=== PATIENT | female | born 1980 | race Caucasian/White ===

== ENCOUNTER 2021-05-25 09:07 | Observation (INO) ==
[2021-05-25 04:03] LABS: Amphetamine Screen,Urine Negative ng/mL (Cutoff=1000); Barbiturate Screen,Urine Negative ng/mL (Cutoff=200); Benzodiazepines Screen,Urine Negative ng/mL (Cutoff=200); Cannabinoid Screen,Urine Negative ng/mL (Cutoff = 50); Cocaine Screen,Urine Negative ng/mL (Cutoff= 300); Opiate Screen,Urine Negative ng/mL (Cutoff=300); Phencyclidine Screen,Urine Negative ng/mL (Cutoff=25)
[2021-05-25 04:10] LABS: Basophils % 0.4 %; Eosinophils % 0.4 %; Hematocrit 36.1 % (35.3-44.9); Hemoglobin 12.1 g/dL (11.5-15.4); Immature Granulocytes % 0.4 % (0-4); Lymphocytes # 2.3 K/mcL (0.6-4.6); Lymphocytes % 27.4 %; Mean Corpuscular HGB Conc 33.5 g/dL (31.6-35.5); Mean Corpuscular Hemoglobin 28.2 pg (28.0-33.3); Mean Corpuscular Volume 84.1 fL (83.0-100.0); Mean Platelet Volume 11.3 fL (9.4-12.4); Monocytes # 0.4 K/mcL (0.0-1.3); Monocytes % 4.8 %; Neutrophils # 5.6 K/mcL (1.6-8.9); Platelet Count 250 K/mcL (140-400); Red Blood Count 4.29 M/mcL (3.82-4.97); Red Cell Distribution Width 13.4 % (11.5-14.5); Segmented Neutrophils % 66.6 %; White Blood Count 8.4 K/mcL (4.3-11.1)
[2021-05-25 04:30] LABS: Influenza A PCR Negative (Negative); Influenza B PCR Negative (Negative); Resp. Syncytial Virus PCR Negative (Negative)
[2021-05-25 04:32] LABS: SARS-CoV-2 by PCR (In House) Negative (Negative)
[2021-05-25 04:38] LABS: Creatinine,Urine 23 mg/dL; Protein/Creatinine Ratio,Urine 0.48 mg/mg (0.00-0.20)
[2021-05-25 04:54] LABS: Alanine Aminotransferase 16 Units/L (7-52); Aspartate Amino Transferase 17 Units/L (13-39); BUN/Creatinine Ratio 22 (6-26); Blood Urea Nitrogen 15 mg/dL (6-20); Lactate Dehydrogenase 135 Units/L (140-271); Uric Acid 5.8 mg/dL (2.3-7.6); eGFR For African Americans > 60 (> 60); eGFR For Non-African Americans > 60 (> 60)
[~2021-05-25 09:07] MED LIST: *HR* Nalbuphine 10 MG/ML AMPUL IV PRN; Azithromycin 500 MG in 0.9 % Sodium Chloride 250 ML IVPB PRN; Famotidine 20 MG/2 ML VIAL IVP PRN; Lidocaine 1% 20 ML MDV INFILT PRN; Metoclopramide 10 MG/2 ML VIAL IVP PRN; Naloxone 0.4 MG/ML INJ IVP PRN; Ondansetron 4 MG/2 ML VIAL IVP PRN; Oxytocin 20 units/ LR 1000 mL 20 UNIT/1,000 ML BAG IVC ONE; Ringers Solution, Lactated 1,000 ML IVC SCH
[2021-05-25] MEDS ORDERED: Lanolin 7 G OINT...G. TP PRN (09:45)
[2021-05-25] MEDS ORDERED: Ondansetron ODT 4 MG TAB.RAPDIS SL PRN (09:45)
[2021-05-25] MEDS ORDERED: Oxytocin 20 units/ LR 1000 mL 20 UNIT/1,000 ML BAG IVC SCH (09:45)
[2021-05-25] MEDS ORDERED: Rho Immune Globulin 1,500 UNIT SYRINGE IM PRN (09:45)
[2021-05-25] MEDS ORDERED: Acetaminophen 325 MG TABLET PO SCH (09:45)
[2021-05-25] MEDS ORDERED: Benzocaine/Menthol 56 GM AEROSOL SPRAY TP PRN (09:45)
[2021-05-25] MEDS ORDERED: Ibuprofen 600 MG TABLET PO SCH (09:46)
[2021-05-25] MEDS: Prenatal Vit/FA 1 EACH TABLET PO SCH (11:26)
[2021-05-25 18:54] VITALS: O2SAT 100
[2021-05-26 03:03] VITALS: BP 117/82; PULSE 70; TEMP 98.2
[2021-05-26] MEDS: Prenatal Vit/FA 1 EACH TABLET PO SCH (10:37)
== END 2021-05-26 16:23 | disposition home or self-care (01) ==
LOC: 1NENULAB → 1NENUOBS 09:07
PROVIDERS: ADMIT Registered Nurse; ATTEND Registered Nurse